=== PATIENT | female | born 1990 | race Caucasian/White ===

== ENCOUNTER 2016-11-11 08:44 | Emergency (ER) | payer SELFPAY ==
[2016-11-11 08:52] VITALS: BP 144/104
[2016-11-11] MEDS ORDERED: ROCEPHIN IM ONE (11:34)
[2016-11-11] MEDS ORDERED: XYLOCAINE 1% MPF 5 mL INFILTRATI ONE (11:34)
[2016-11-11] MEDS ORDERED: ZITHROMAX PO ONE (11:35)
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
== END 2016-11-11 13:37 | disposition home or self-care (01) ==
LOC: ED 08:44
DX: Z20.2 Contact with and (suspected) exposure to infections with a predominantly sexual mode of transmission (principal); F12.10 Cannabis abuse, uncomplicated
CPT/HCPCS: 87210; 87591; 96372; 99283; J0696